=== PATIENT | male | born 1970 | race African-American/Black ===

== ENCOUNTER 2016-10-08 06:25 | Emergency (ER) | payer OTHER ==
[~2016-10-08] VITALS: Ht 175.3 cm; Wt 70.6 kg
[2016-10-08 07:02] LABS: EOSINOPHIL (%) 1.4 % (0-5); EOSINOPHIL COUNT 0.1 K/uL (0-0.3); HEMATOCRIT 49.5 % (38.0-50.0); IMMATURE GRANULOCYTE (%) 0.3 % (0.0-0.7); INSTRUMENT ABS NEUTROPHIL CT 3.3 K/uL; LYMPHOCYTE COUNT 2.4 K/uL (1.0-2.8); MCH 28.3 PG (29.0-34.0); MCHC 33.1 G/DL (30.0-36.0); MCV 85.3 FL (86-99); MEAN PLAT.VOLUME 11.8 uM^3 (9.0-12.4); MONOCYTE (%) 7.7 % (3-12); MONOCYTE COUNT 0.5 K/uL (0-0.8); NEUTROPHIL (%) 52.8 % (45-76); NEUTROPHIL COUNT 3.3 K/uL (1.8-6.4); PLATELET COUNT 161 K/uL (156-360); RBC DIS.WIDTH-CV 12.8 % (11.8-14.6); RBC DIS.WIDTH-SD 39.8 % (39-53); WHITE BLOOD COUNT 6.3 K/uL (4.1-10.2)
[2016-10-08 07:03] LABS: CARBON DIOXIDE (BICARBONATE) 27.3 MEQ/L (20-31)
[2016-10-08 07:28] LABS: POINT-OF-CARE METER ID UU13113702
[2016-10-08 07:32] LABS: TROP-I INTERPRETATION NEGATIVE; TROPONIN-I 0.01 ng/mL (0.0-0.30)
[2016-10-08 07:35] LABS: ANION GAP 9 MEQ/L (2-14); CHLORIDE 105 MEQ/L (99-109); MAGNESIUM 1.8 mg/dl (1.3-2.7); POTASSIUM 3.6 MEQ/L (3.7-5.4); SAMPLE HEMOLYSIS CHECK 0; SAMPLE ICTERIC CHECK 0; SAMPLE LIPEMIA CHECK 0; SODIUM 139 MEQ/L (136-147); TOTAL BILIRUBIN 0.5 MG/DL (0.0-1.0)
[2016-10-08 07:40] LABS: ALKALINE PHOSPHATASE 30 IU/L (3-129); GFR ESTIMATE (CALCULATED) > 59 mL/min/; GLUCOSE 160 mg/dL (70-99); UREA NITROGEN (BUN) 14 mg/dL (9-23)
[2016-10-08 10:09] LABS: TROP-I INTERPRETATION NEGATIVE; TROPONIN-I < 0.01 ng/mL (0.0-0.30)
[2016-10-08] MEDS ORDERED: PEPCID20 MG PO (10:57)
[2016-10-08] MEDS ORDERED: EPIPEN ADU0.3 MG/0.3 IM (10:57)
[2016-10-08] MEDS ORDERED: PREDNISONE20 MG PO (10:57)
[2016-10-08 11:51] VITALS: BP 101/60
== END 2016-10-08 11:52 | disposition home or self-care (01) ==
LOC: EDBD 06:25 → EME 06:25
PROVIDERS: Physician Assistant
DX: T63.441A Toxic effect of venom of bees, accidental (unintentional), initial encounter (principal); Z91.030 Bee allergy status
CPT/HCPCS: 71010; 80053; 82803; 83735; 83880; 84484; 85025; 93005; 99281; 99285; J2930; J7120; S0028